=== PATIENT | male | born 1975 | race Hispanic/Latino ===

== ENCOUNTER 2020-10-02 19:16 | Inpatient (IN) | payer SELFPAY ==
--- NOTE | 2020-10-02 20:49 | Event Note ---
ED Screening Note Date of service: 10/02/20 Time: 20:46 ED Screening Note: pt is a 45 y/o male who presents for LLQ pain and swelling x 2 days with n/v last po yesterday, denies hx of hernia, crohns, or diverticulitis , states now unable to tolerate po intake sinse this am. there has been no fever or chills. denies etoh. This initial assessment/diagnostic orders/clinical plan/treatment(s) is/are subject to change based on patients health status, clinical progression and re- assessment by fellow clinical providers in the ED. Further treatment and workup at subsequent clinical providers discretion. Patient/guardian urged not to elope from the ED as their condition may be serious if not clinically assessed and managed. Initial orders include: cmp,cbc, ua, lipase,
[2020-10-02 21:04] LABS: Basophils # (Auto) 0.1 K/mm3 (0.0-0.1); Basophils % (Auto) 0.3 % (0.0-1.8); Eosinophils # (Auto) 0.2 K/mm3 (0.0-0.4); Hematocrit 53.5 % (35.5-45.6); Hemoglobin 18.2 gm/dl (11.8-15.2); Lymphocytes # (Auto) 2.8 K/mm3 (1.2-5.4); Lymphocytes % (Auto) 16.3 % (13.4-35.0); Mean Corpuscular HGB Conc 34 % (32-34); Mean Corpuscular Volume 92 fl (84-94); Monocytes # (Auto) 0.8 K/mm3 (0.0-0.8); Monocytes % (Auto) 4.8 % (0.0-7.3); Platelet Count 288 K/mm3 (140-440); Red Blood Count 5.84 M/mm3 (3.65-5.03); Red Cell Distribution Width 13.3 % (13.2-15.2)
[2020-10-02 21:25] LABS: Alanine Aminotransferase 22 units/L (7-56); Albumin 4.2 g/dL (3.9-5); BUN/Creatinine Ratio 16; Blood Urea Nitrogen 13 mg/dL (9-20); Hemolysis Index 9
[2020-10-02] MEDS ORDERED: ONDANSETRON 4 MG/2 ML INJ IV ONE (21:47)
[2020-10-02] MEDS ORDERED: SODIUM CHLORIDE 0.9% 1000 ML 1,000 ML IV ONE (21:47)
[2020-10-02] MEDS ORDERED: HYDROmorphone 2 MG/1 ML INJ IV ONE (21:47)
[2020-10-02] MEDS ORDERED: SODIUM CHLORIDE 0.9% 1000 ML IV SOLN IV ONE (21:51)
--- NOTE | 2020-10-02 21:51 | Emergency Department Report ---
ED Abdominal Pain HPI - General Chief Complaint: Abdominal Pain Stated Complaint: LEFT SIDE PAIN PUI?: No Time Seen by Provider: 10/02/20 21:47 Source: patient Mode of arrival: Ambulatory Limitations: No Limitations - History of Present Illness Initial Comments: Patient is a 45-year-old male absence emergency room with complaints of abdominal pain. Patient states he has had abdominal pain x3 days. Patient states he has had intermittent abdominal pain for the last year but this has become worse and more intense. Patient does have nausea and vomiting. Patient dates his had nausea vomiting x1 day. Patient states he is not able to hold anything down. Patient states his pain is a 10 out of 10. Patient states the pain is in the left lower quadrant. Patient states the pain is nonradiating. Patient denies fever and chills. Patient denies blood in his vomitus. Patient denies diarrhea. Patient denies recent travel. Patient denies recent international travel. Patient denies exposure to the novel coronavirus. Patient denies sick contacts. Patient denies fever and chills. Patient denies cough. Patient denies diarrhea. Patient denies coming in contact with anybody with symptoms of the novel coronavirus. MD Complaint: abdominal pain -: Sudden Location: LLQ Radiation: none Migration to: no migration Severity: severe Severity scale (0 -10): 10 Quality: stabbing Consistency: constant Improves With: rest Worsens With: movement Associated Symptoms: nausea, vomiting, anorexia. denies: diarrhea, fever, c hills, constipation, dysuria, hematemesis, hematochezia, melena, hematuria, syncope Treatments Prior to Arrival: NSAIDs - Related Data Allergies Allergy/AdvReac Type Severity Reaction Status Date / Time No Known Allergies Allergy Unverified 10/02/20 20:43 ED Review of Systems ROS: Stated complaint: LEFT SIDE PAIN Other details as noted in HPI Constitutional: denies: chills, fever Eyes: denies: eye pain, eye discharge, vision change ENT: denies: ear pain, throat pain Respiratory: denies: cough, shortness of breath, wheezing Cardiovascular: denies: chest pain, palpitations Endocrine: no symptoms reported Gastrointestinal: abdominal pain, nausea, vomiting. denies: diarrhea, constipation, hematemesis, melena, hematochezia Genitourinary: denies: urgency, dysuria Musculoskeletal: denies: back pain, joint swelling, arthralgia Skin: denies: rash, lesions Neurological: denies: headache, weakness, paresthesias Psychiatric: denies: anxiety, depression Hematological/Lymphatic: denies: easy bleeding, easy bruising ED Past Medical Hx - Past Medical History Previous Medical History?: Yes Additional medical history: Fluid on brain - Surgical History Past Surgical History?: Yes Additional Surgical History: Left leg hard lomax. - Family History Family history: no significant - Social History Smoking Status: Current Every Day Smoker Substance Use Type: None ED Physical Exam - General Limitations: No Limitations General appearance: alert, in no apparent distress - Head Head exam: Present: atraumatic, normocephalic - Eye Eye exam: Present: normal appearance - ENT ENT exam: Present: mucous membranes moist - Neck Neck exam: Present: normal inspection - Respiratory Respiratory exam: Present: normal lung sounds bilaterally. Absent: respiratory distress - Cardiovascular Cardiovascular Exam: Present: regular rate, normal rhythm. Absent: systolic murmur, diastolic murmur, rubs, gallop - GI/Abdominal GI/Abdominal exam: Present: soft, tenderness (Left lower quadrant tenderness to palpation.), normal bowel sounds - Rectal Rectal exam: Present: deferred - Extremities Exam Extremities exam: Present: normal inspection - Back Exam Back exam: Present: normal inspection - Neurological Exam Neurological exam: Present: alert, oriented X3 - Psychiatric Psychiatric exam: Present: normal affect, normal mood - Skin Skin exam: Present: warm, dry, intact, normal color. Absent: rash ED Course Vital Signs 10/02/20 20:37 Temperature 98.0 F Pulse Rate 128 H Respiratory 16 Rate Blood Pressure 131/73 O2 Sat by Pulse 96 Oximetry - Reevaluation(s) Reevaluation #1: Patient still complaining of severe pain. Patient be given another milligram of Dilaudid. 10/02/20 23:35 Reevaluation #2: I discussed all results with patient. I discussed plan of care with patient. Patient agrees with plan of care and admission. Patient to be admitted to the hospitalist service. 10/03/20 00:01 - Consultations Consultation #1: Hospitalist consulted for admission. Hospitalist to admit patient. 10/03/20 00:01 ED Medical Decision Making - Lab Data Result diagrams: 10/02/20 20:50 10/02/20 20:50 - Radiology Data Radiology results: report reviewed CT abdomen pelvis w con INDICATION: Patient complains of L.L.Q. abdominal pain.. COMPARISON: None TECHNIQUE: Abdominal and pelvic CT exam performed. All CT scans at this location are performed using CT dose reduction for ALARA by means of automated exposure control. FINDINGS: CT ABDOMEN and PELVIS: Lung Bases: No significant abnormality. Liver: No significant abnormality. Biliary: No significant abnormality. Spleen: No significant abnormality. Pancreas: No significant abnormality. Adrenals: No significant abnormality. Kidneys: No significant abnormality. Lymphatics: No lymphadenopathy. Vasculature: No significant abnormality. Bowel: No significant abnormality. Normal appendix. Pelvis: No significant abnormality. Osseous Structures: No aggressive osseous lesion. Additional Findings: Small fat-containing inguinal hernias. IMPRESSION: 1. No significant abnormality of the abdomen or pelvis. - Medical Decision Making Patient is a 45-year-old male that presents emergency room with complaints of left lower quadrant pain. Patient pain is severe. Patient's exam reveals a severely tender left lower quadrant. Patient had a CT scan to rule out acute pathologies of the abdomen. Patient CT scan was negative for acute findings. Patient was given 2 mg of Dilaudid after initial evaluation the patient still continued to have severe abdominal pain. Patient had labs done which revealed a lactic acidosis and a elevated WBC. Patient also was found to be tachycardic on initial evaluation. Patient given fluids and antibiotics. Patient's lactic acid improved with the treatment. Patient admitted to the hospitalist service for further evaluation and treatment. - Differential Diagnosis Diverticulitis, abdominal pain, sepsis, Sirs, UTI Critical Care Time: Yes Critical care time in (mins) excluding proc time.: 35 Critical care attestation.: If time is entered above; I have spent that time in minutes in the direct care of this critically ill patient, excluding procedure time. Critical Care Time: 35 MINUTES ED Disposition Clinical Impression: LLQ abdominal pain, Diverticulitis, Lactic acid acidosis, SIRS (systemic inflammatory response syndrome) Elevated WBC count Qualifiers: Leukocytosis type: unspecified Qualified Code(s): D72.829 - Elevated white blood cell count, unspecified Disposition: OP ADMIT IP TO THIS HOSP Is pt being admited?: Yes Does the pt Need Aspirin: No Condition: Critical Time of Disposition: 23:56
[2020-10-02] MEDS ORDERED: PIPERACIL/TAZOBACTA 4.5/NS 100 4.5 GM/100 ML VIAL IV ONE (21:52)
--- NOTE | 2020-10-02 22:54 | Cat Scan Report ---
CT abdomen pelvis w con INDICATION: Patient complains of L.L.Q. abdominal pain.. COMPARISON: None TECHNIQUE: Abdominal and pelvic CT exam performed. All CT scans at this location are performed using CT dose reduction for ALARA by means of automated exposure control. FINDINGS: CT ABDOMEN and PELVIS: Lung Bases: No significant abnormality. Liver: No significant abnormality. Biliary: No significant abnormality. Spleen: No significant abnormality. Pancreas: No significant abnormality. Adrenals: No significant abnormality. Kidneys: No significant abnormality. Lymphatics: No lymphadenopathy. Vasculature: No significant abnormality. Bowel: No significant abnormality. Normal appendix. Pelvis: No significant abnormality. Osseous Structures: No aggressive osseous lesion. Additional Findings: Small fat-containing inguinal hernias. IMPRESSION: 1. No significant abnormality of the abdomen or pelvis. Signer Name: Fabrizio Ro MD Signed: 10/02/2020 10:49 PM Workstation Name: [id number]
[2020-10-03] MEDS ORDERED: HYDROmorphone 1 MG/1 ML INJ IV ONE
[2020-10-03] MEDS ORDERED: ACETAMINOPHEN 325 MG TAB PO PRN (00:35)
[2020-10-03] MEDS ORDERED: MAGNESIUM HYDROXIDE (MOM) ORAL LIQD UDC PO PRN (00:35)
[2020-10-03] MEDS ORDERED: ONDANSETRON 4 MG/2 ML INJ IV PRN (00:35)
--- NOTE | 2020-10-03 00:52 | History and Physical Report ---
History of Present Illness Date of examination: 10/03/20 Date of admission: 10/03/20 00:02 Chief complaint: Nausea and Vomiting Abdominal Pain History of present illness: 45-year-old white male with no significant past medical history presenting to the emergency room today complaining of abdominal pain which has been ongoing for about 3 days. Abdominal pain is said to have been intermittent over the past 1 year but got worse over the past few days. He has been having nausea and vomiting over the last 24 hours. He denies any diarrhea. He denies any fever or chills, no chest pain or shortness of breath, no headache or dizziness, no hematuria or dysuria. Patient has had abdominal pain and indicates his pain is about 10/10 in severity. Pain is worse in the left lower abdomen. No known relieving or exacerbating factor. Patient denies any constipation . Patient denies any sick contacts and no recent travel, denies any contact with anyone with COVID-19. Work-up in the emergency room today reveals a leukocytosis of 17, he also had lactic acidosis upon arrival. CT of the abdomen and pelvis reveals:Small fat-containing inguinal hernias otherwise no acute findings. Patient admitted with abdominal pain, leukocytosis and lactic acidosis. He has also been placed on empiric IV antibiotics.. Past History Past Medical History: No medical history Past Surgical History: Other (History of hardware in the left lower extremity) Social history: smoking (Current daily smoker) Family history: no significant family history Medications and Allergies Allergies Allergy/AdvReac Type Severity Reaction Status Date / Time No Known Allergies Allergy Unverified 10/02/20 20:43 Home Medications Medication Instructions Recorded Confirmed Last Taken Type No Known Home Medications [No 10/03/20 10/03/20 Unknown History Reported Home Medications] Active Meds: Active Medications Acetaminophen (Acetaminophen 325 Mg Tab) 650 mg PO Q4H PRN PRN Reason: Pain MILD(1-3)/Fever >100.5/OLGUIN Hydromorphone HCl (Hydromorphone 1 Mg/1 Ml Inj) 1 mg IV Q3H PRN PRN Reason: Pain, Moderate (4-6) Sodium Chloride (Nacl 0.9% 1000 Ml) 1,000 mls @ 125 mls/hr IV DIRECT RUDI Magnesium Hydroxide (Magnesium Hydroxide (Mom) Oral Liqd Udc) 30 ml PO Q4H PRN PRN Reason: Constipation Ondansetron HCl (Ondansetron 4 Mg/2 Ml Inj) 4 mg IV Q8H PRN PRN Reason: Nausea And Vomiting Sodium Chloride (Sodium Chloride 0.9% 10 Ml Flush Syringe) 10 ml IV BID RUDI Sodium Chloride (Sodium Chloride 0.9% 10 Ml Flush Syringe) 10 ml IV PRN PRN PRN Reason: LINE FLUSH Review of Systems Constitutional: no fever, no chills Ears, nose, mouth and throat: no nasal congestion, no sore throat Cardiovascular: no chest pain, no palpitations Respiratory: no cough, no shortness of breath Gastrointestinal: abdominal pain, nausea, vomiting, no diarrhea, no constipation, no coffee ground emesis Genitourinary Male: no dysuria, no hematuria, no flank pain, no nocturia Musculoskeletal: no neck pain, no low back pain Integumentary: no rash, no pruritis Neurological: no headaches, no confusion Psychiatric: no anxiety, no depression Exam - Constitutional Vitals: Temp Pulse Resp BP Pulse Ox 98.0 F 128 H 16 131/73 96 10/02/20 20:37 10/02/20 20:37 10/02/20 20:37 10/02/20 20:37 10/02/20 20:37 General appearance: Present: no acute distress, mild distress, well-nourished - EENT Eyes: Present: PERRL, EOM intact. Absent: scleral icterus ENT: hearing intact, clear oral mucosa, dentition normal - Neck Neck: Present: supple, normal ROM - Respiratory Respiratory effort: normal Respiratory: bilateral: CTA - Cardiovascular Rhythm: regular Heart Sounds: Present: S1 & S2. Absent: gallop, systolic murmur, diastolic murmur, rub - Extremities Extremities: no ischemia, pulses intact, pulses symmetrical, No edema, Full ROM Peripheral Pulses: within normal limits - Abdominal General gastrointestinal: Present: soft, tender (Left lower quadrant, no rebound tenderness), non-distended, normal bowel sounds, hernia (Left inguinal hernia) - Integumentary Integumentary: Present: clear, warm, dry. Absent: rash - Musculoskeletal Musculoskeletal: strength equal bilaterally - Psychiatric Psychiatric: appropriate mood/affect, intact judgment & insight, memory intact - Neurologic Neurologic: CNII-XII intact, no focal deficits, moves all extremities Results - Labs CBC & Chem 7: 10/02/20 20:50 10/02/20 20:50 Labs: Abnormal lab results 10/02/20 10/02/20 10/02/20 Range/Units 20:50 20:50 20:50 WBC 17.1 H (4.5-11.0) K/mm3 RBC 5.84 H (3.65-5.03) M/mm3 Hgb 18.2 H (11.8-15.2) gm/dl Hct 53.5 H (35.5-45.6) % Seg Neutrophils % 77.6 H (40.0-70.0) % Seg Neutrophils # 13.3 H (1.8-7.7) K/mm3 Sodium 132 L (137-145) mmol/L Chloride 97.7 L (98-107) mmol/L Glucose 113 H (75-100) mg/dL Lactic Acid 2.10 H* (0.7-2.0) mmol/L Assessment and Plan - Patient Problems (1) LLQ abdominal pain Current Visit: Yes Status: Acute Plan to address problem: Etiology is unclear. Presentation suspicious for diverticulitis. Patient placed on IV analgesic medication, IV fluid and empiric IV antibiotics. Will consider surgical consultation if no improvement. (2) Elevated WBC count Current Visit: Yes Status: Acute Qualifiers: Leukocytosis type: unspecified Qualified Code(s): D72.829 - Elevated white blood cell count, unspecified Plan to address problem: Possibly secondary to an underlying infection. Will monitor CBC. He has also been placed on empiric IV antibiotics. (3) Lactic acid acidosis Current Visit: Yes Status: Acute Plan to address problem: We will continue on antibiotics and IV fluid. Will monitor chemistry. (4) DVT prophylaxis Current Visit: Yes Status: Acute Plan to address problem: Patient placed on subcutaneous heparin. (5) Full code status Current Visit: Yes Status: Acute Plan to address problem: Patient is a full code.
[2020-10-03 00:54] LABS: Bilirubin,Urine NEG (Negative); Blood,Urine NEG (Negative); Color,Urine Yellow (Yellow); Mucus,Urine FEW /HPF; Protein,Urine <15 mg/dL mg/dL (Negative); Urobilinogen,Urine < 2.0 mg/dL (<2.0); WBC,Urine < 1.0 /HPF (0.0-6.0)
[2020-10-03] MEDS: HEPARIN 5,000 UNIT/1 ML VIAL SUB-Q SCH ×3 (06:47→21:26)
[2020-10-03] MEDS: PIPERACIL/TAZOBACTA 4.5/NS 100 4.5 GM/100 ML VIAL IV SCH ×3 (06:52→21:27)
[2020-10-03] MEDS: SODIUM CHLORIDE 0.9% 1000 ML 1,000 ML IV SCH ×2 (08:06→16:34)
[2020-10-03] MEDS: HYDROmorphone 1 MG/1 ML INJ IV PRN ×2 (09:18→21:50)
--- NOTE | 2020-10-03 09:40 | Gastroenterology Consultation ---
History of Present Illness - Reason for Consult Consult date: 10/03/20 Abd pain Requesting physician: KVNG HOFFMAN - History of Present Illness Is a pleasant 45-year-old gentleman with no known medical history presents with abdominal pain Patient reports for the last year having abdominal pain in the left groin where he has a hernia He reports the pain is waxing and waning ranging from mild to severe it was present most of the time Worse with lifting heavy objects better with resting Pain radiates up to the mid abdomen. Pain has been worsening over the past week pain is now severe sharp constant associated with intermittent severe nausea vomiting and diarrhea Patient denies any Po medications sick contacts Reports occasional NSAID use but not daily Reports smoking Reports moderate alcohol use Obtained/updated/reviewed patient's current medications Past History Past Medical History: No medical history Past Surgical History: Other (History of hardware in the left lower extremity) Social history: smoking (Current daily smoker) Family history: no significant family history Medications and Allergies Allergies Allergy/AdvReac Type Severity Reaction Status Date / Time No Known Allergies Allergy Unverified 10/02/20 20:43 Home Medications Medication Instructions Recorded Confirmed Last Taken Type No Known Home Medications [No 10/03/20 10/03/20 Unknown History Reported Home Medications] Active Meds: Active Medications Acetaminophen (Acetaminophen 325 Mg Tab) 650 mg PO Q4H PRN PRN Reason: Pain MILD(1-3)/Fever >100.5/OLGUIN Heparin Sodium (Porcine) (Heparin 5,000 Unit/1 Ml Vial) 5,000 unit SUB-Q Q8HR RUDI Last Admin: 10/03/20 06:47 Dose: 5,000 unit Documented by: Hydromorphone HCl (Hydromorphone 1 Mg/1 Ml Inj) 1 mg IV Q3H PRN PRN Reason: Pain, Moderate (4-6) Last Admin: 10/03/20 09:18 Dose: 1 mg Documented by: Sodium Chloride (Nacl 0.9% 1000 Ml) 1,000 mls @ 125 mls/hr IV DIRECT RUDI Last Admin: 10/03/20 08:06 Dose: 125 mls/hr Documented by: Piperacillin Sod/Tazobactam Sod (Zosyn/Ns 4.5gm/100ml) 4.5 gm in 100 mls @ 200 mls/hr IV Q8H RUDI; Protocol Last Admin: 10/03/20 06:52 Dose: 200 mls/hr Documented by: Magnesium Hydroxide (Magnesium Hydroxide (Mom) Oral Liqd Udc) 30 ml PO Q4H PRN PRN Reason: Constipation Ondansetron HCl (Ondansetron 4 Mg/2 Ml Inj) 4 mg IV Q8H PRN PRN Reason: Nausea And Vomiting Sodium Chloride (Sodium Chloride 0.9% 10 Ml Flush Syringe) 10 ml IV BID RUDI Last Admin: 10/03/20 09:15 Dose: 10 ml Documented by: Sodium Chloride (Sodium Chloride 0.9% 10 Ml Flush Syringe) 10 ml IV PRN PRN PRN Reason: LINE FLUSH Last Admin: 10/03/20 06:53 Dose: 10 ml Documented by: Review of Systems - Review of Systems All systems: negative (10 Systems reviewed and negative except as mentioned above in the history of present illness) Exam - Constitutional Vital Signs: Temp Pulse Resp BP Pulse Ox 97.7 F 89 20 112/73 96 10/03/20 07:47 10/03/20 07:47 10/03/20 05:31 10/03/20 07:47 10/03/20 07:47 General appearance: no acute distress - EENT Eyes: EOM intact ENT: clear oral mucosa - Neck Neck: supple - Respiratory Respiratory effort: normal - Cardiovascular Rhythm: regular - Gastrointestinal General gastrointestinal: Present: soft, tender, other (Diffuse tenderness palpation, worse in the left lower quadrant/left groin) - Integumentary Integumentary: Present: dry - Musculoskeletal Musculoskeletal: other (Minimal clubbing) - Neurologic Neurological: alert and oriented x3 - Psychiatric Psychiatric: appropriate mood/affect - Labs CBC & Chem 7: 10/02/20 20:50 10/02/20 20:50 Lab Results: Laboratory Results - last 24 hr 10/02/20 10/02/20 10/02/20 20:50 20:50 20:50 WBC 17.1 H RBC 5.84 H Hgb 18.2 H Hct 53.5 H MCV 92 MCH 31 MCHC 34 RDW 13.3 Plt Count 288 Lymph % (Auto) 16.3 King % (Auto) 4.8 Eos % (Auto) 1.0 Baso % (Auto) 0.3 Lymph # (Auto) 2.8 King # (Auto) 0.8 Eos # (Auto) 0.2 Baso # (Auto) 0.1 Seg Neutrophils % 77.6 H Seg Neutrophils # 13.3 H Sodium 132 L Potassium 3.6 Chloride 97.7 L Carbon Dioxide 22 Anion Gap 16 BUN 13 Creatinine 0.8 Estimated GFR > 60 BUN/Creatinine Ratio 16 Glucose 113 H Lactic Acid 2.10 H* Calcium 9.0 Total Bilirubin 0.50 AST 18 ALT 22 Alkaline Phosphatase 73 Total Protein 7.4 Albumin 4.2 Albumin/Globulin Ratio 1.3 Lipase Urine Color Urine Turbidity Urine pH Ur Specific Union Urine Protein Urine Glucose (UA) Urine Ketones Urine Blood Urine Nitrite Urine Bilirubin Urine Urobilinogen Ur Leukocyte Esterase Urine WBC (Auto) Urine RBC (Auto) Urine Mucus 10/02/20 10/02/20 10/03/20 20:50 22:45 00:25 WBC RBC Hgb Hct MCV MCH MCHC RDW Plt Count Lymph % (Auto) King % (Auto) Eos % (Auto) Baso % (Auto) Lymph # (Auto) King # (Auto) Eos # (Auto) Baso # (Auto) Seg Neutrophils % Seg Neutrophils # Sodium Potassium Chloride Carbon Dioxide Anion Gap BUN Creatinine Estimated GFR BUN/Creatinine Ratio Glucose Lactic Acid 1.10 Calcium Total Bilirubin AST ALT Alkaline Phosphatase Total Protein Albumin Albumin/Globulin Ratio Lipase 58 Urine Color Yellow Urine Turbidity Clear Urine pH 5.0 Ur Specific Union 1.060 H Urine Protein <15 mg/dl Urine Glucose (UA) Neg Urine Ketones Neg Urine Blood Neg Urine Nitrite Neg Urine Bilirubin Neg Urine Urobilinogen < 2.0 Ur Leukocyte Esterase Neg Urine WBC (Auto) < 1.0 Urine RBC (Auto) 2.0 Urine Mucus Few Assessment and Plan Patient appears to be having a symptomatic inguinal hernia for the last year However, no obstruction seen on CT scan and patient not clinically obstructed on physical exam this morning Regarding his worsening symptoms over the last week,-differential diagnosis would be acute infectious gastroenteritis Additionally patient is a smoker and does use NSAIDs on occasion so has a risk factors for peptic ulcer disease. Therefore I recommend supportive care with hydration, PPI, as needed antiemetics (orders placed) Stool studies rule out infection Patient does not require urgent endoscopy at this juncture, rather recommend medical management and if patient does not improve over the weekend then will recommend further endoscopic evaluation Surgery has already been consulted for the patient's symptomatic hernia, defer to them regarding timing of surgery - Patient Problems (1) Nausea and vomiting Current Visit: Yes Status: Acute (2) Diarrhea Current Visit: Yes Status: Acute (3) LLQ abdominal pain Current Visit: Yes Status: Acute
--- NOTE | 2020-10-03 09:44 | Progress Note ---
Assessment and Plan Assessment and plan: Left lower quadrant abdominal pain. Etiology likely secondary to inguinal hernia. GI and surgery consultations pending. CT scan revealed Small fat- containing inguinal hernias otherwise no acute findings. Continue empiric antibiotics for diverticulitis Leukocytosis. Patient showing no evidence of infectious etiology. Check chest x-ray. Urinalysis negative. History Interval history: No new issues Hospitalist Physical - Constitutional Vitals: Temp Pulse Resp BP Pulse Ox 97.7 F 89 20 112/73 96 10/03/20 07:47 10/03/20 07:47 10/03/20 05:31 10/03/20 07:47 10/03/20 07:47 General appearance: Present: no acute distress, mild distress, well-nourished - EENT Eyes: Present: PERRL, EOM intact ENT: hearing intact, clear oral mucosa, dentition normal - Neck Neck: Present: supple, normal ROM - Respiratory Respiratory effort: normal Respiratory: bilateral: CTA - Cardiovascular Rhythm: regular Heart Sounds: Present: S1 & S2. Absent: gallop, rub - Extremities Extremities: no ischemia, No edema, Full ROM - Abdominal General gastrointestinal: soft, non-tender, non-distended, normal bowel sounds - Integumentary Integumentary: Present: clear, warm, dry - Neurologic Neurologic: CNII-XII intact, moves all extremities Results - Labs CBC & Chem 7: 10/02/20 20:50 10/02/20 20:50 Labs: Laboratory Last Values WBC 17.1 K/mm3 (4.5-11.0) H 10/02/20 20:50 RBC 5.84 M/mm3 (3.65-5.03) H 10/02/20 20:50 Hgb 18.2 gm/dl (11.8-15.2) H 10/02/20 20:50 Hct 53.5 % (35.5-45.6) H 10/02/20 20:50 MCV 92 fl (84-94) 10/02/20 20:50 MCH 31 pg (28-32) 10/02/20 20:50 MCHC 34 % (32-34) 10/02/20 20:50 RDW 13.3 % (13.2-15.2) 10/02/20 20:50 Plt Count 288 K/mm3 (140-440) 10/02/20 20:50 Lymph % (Auto) 16.3 % (13.4-35.0) 10/02/20 20:50 Worth % (Auto) 4.8 % (0.0-7.3) 10/02/20 20:50 Eos % (Auto) 1.0 % (0.0-4.3) 10/02/20 20:50 Baso % (Auto) 0.3 % (0.0-1.8) 10/02/20 20:50 Lymph # (Auto) 2.8 K/mm3 (1.2-5.4) 10/02/20 20:50 Worth # (Auto) 0.8 K/mm3 (0.0-0.8) 10/02/20 20:50 Eos # (Auto) 0.2 K/mm3 (0.0-0.4) 10/02/20 20:50 Baso # (Auto) 0.1 K/mm3 (0.0-0.1) 10/02/20 20:50 Seg Neutrophils % 77.6 % (40.0-70.0) H 10/02/20 20:50 Seg Neutrophils # 13.3 K/mm3 (1.8-7.7) H 10/02/20 20:50 Sodium 132 mmol/L (137-145) L 10/02/20 20:50 Potassium 3.6 mmol/L (3.6-5.0) 10/02/20 20:50 Chloride 97.7 mmol/L (98-107) L 10/02/20 20:50 Carbon Dioxide 22 mmol/L (22-30) 10/02/20 20:50 Anion Gap 16 mmol/L 10/02/20 20:50 BUN 13 mg/dL (9-20) 10/02/20 20:50 Creatinine 0.8 mg/dL (0.8-1.3) 10/02/20 20:50 Estimated GFR > 60 ml/min 10/02/20 20:50 BUN/Creatinine Ratio 16 % 10/02/20 20:50 Glucose 113 mg/dL (75-100) H 10/02/20 20:50 Lactic Acid 1.10 mmol/L (0.7-2.0) 10/02/20 22:45 Calcium 9.0 mg/dL (8.4-10.2) 10/02/20 20:50 Total Bilirubin 0.50 mg/dL (0.1-1.2) 10/02/20 20:50 AST 18 units/L (5-40) 10/02/20 20:50 ALT 22 units/L (7-56) 10/02/20 20:50 Alkaline Phosphatase 73 units/L (35-129) 10/02/20 20:50 Total Protein 7.4 g/dL (6.3-8.2) 10/02/20 20:50 Albumin 4.2 g/dL (3.9-5) 10/02/20 20:50 Albumin/Globulin Ratio 1.3 % 10/02/20 20:50 Lipase 58 units/L (13-60) 10/02/20 20:50 Urine Color Yellow (Yellow) 10/03/20 00:25 Urine Turbidity Clear (Clear) 10/03/20 00:25 Urine pH 5.0 (5.0-7.0) 10/03/20 00:25 Ur Specific [place] 1.060 (1.003-1.030) H 10/03/20 00:25 Urine Protein <15 mg/dl mg/dL (Negative) 10/03/20 00:25 Urine Glucose (UA) Neg mg/dL (Negative) 10/03/20 00:25 Urine Ketones Neg mg/dL (Negative) 10/03/20 00:25 Urine Blood Neg (Negative) 10/03/20 00:25 Urine Nitrite Neg (Negative) 10/03/20 00:25 Urine Bilirubin Neg (Negative) 10/03/20 00:25 Urine Urobilinogen < 2.0 mg/dL (<2.0) 10/03/20 00:25 Ur Leukocyte Esterase Neg (Negative) 10/03/20 00:25 Urine WBC (Auto) < 1.0 /HPF (0.0-6.0) 10/03/20 00:25 Urine RBC (Auto) 2.0 /HPF (0.0-6.0) 10/03/20 00:25 Urine Mucus Few /HPF 10/03/20 00:25 Microbiology: Microbiology 10/02/20 22:45 Peripheral/Venous Blood Culture - Preliminary Culture in Progress 10/02/20 22:45 Peripheral/Venous Blood Culture - Preliminary Culture in Progress Hewitt/IV: Voiding Method Toilet IV Catheter Type [Left Peripheral IV Antecubital] Active Medications - Current Medications Current Medications: Generic Name Dose Route Start Last Admin Trade Name Freq PRN Reason Stop Dose Admin Acetaminophen 650 mg 10/03/20 00:35 Acetaminophen 325 Mg Tab PO Q4H PRN Pain MILD(1-3)/Fever >100.5/OLGUIN Heparin Sodium (Porcine) 5,000 unit 10/03/20 06:00 10/03/20 06:47 Heparin 5,000 Unit/1 Ml Vial SUB-Q 5,000 unit Q8HR RUDI Administration Hydromorphone HCl 1 mg 10/03/20 00:35 10/03/20 09:18 Hydromorphone 1 Mg/1 Ml Inj IV 1 mg Q3H PRN Administration Pain, Moderate (4-6) Sodium Chloride 1,000 mls @ 125 mls/hr 10/03/20 00:45 10/03/20 08:06 Nacl 0.9% 1000 Ml IV 125 mls/hr DIRECT RUDI Administration Piperacillin Sod/Tazobactam Sod 4.5 gm in 100 mls @ 200 mls/hr 10/03/20 06:00 10/03/20 06:52 Zosyn/Ns 4.5gm/100ml IV 200 mls/hr Q8H RUDI Administration Protocol Magnesium Hydroxide 30 ml 10/03/20 00:35 Magnesium Hydroxide (Mom) Oral Liqd Udc PO Q4H PRN Constipation Ondansetron HCl 4 mg 10/03/20 00:35 Ondansetron 4 Mg/2 Ml Inj IV Q8H PRN Nausea And Vomiting Pantoprazole Sodium 40 mg 10/03/20 10:00 Pantoprazole 40 Mg Tab PO BID RUDI Sodium Chloride 10 ml 10/03/20 10:00 10/03/20 09:15 Sodium Chloride 0.9% 10 Ml Flush Syringe IV 10 ml BID RUDI Administration Sodium Chloride 10 ml 10/03/20 00:35 10/03/20 06:53 Sodium Chloride 0.9% 10 Ml Flush Syringe IV 10 ml PRN PRN Administration LINE FLUSH
[2020-10-03] MEDS: PANTOPRAZOLE 40 MG TAB PO SCH ×2 (10:07→21:26)
--- NOTE | 2020-10-03 10:32 | XRay Report ---
CHEST 1 VIEW 9:58 AM INDICATION / CLINICAL INFORMATION: Leukocytosis. COMPARISON: None available. FINDINGS: SUPPORT DEVICES: None. HEART / MEDIASTINUM: The heart size and pulmonary vasculature are normal. LUNGS / PLEURA: No significant pulmonary or pleural abnormality. No pneumothorax. ADDITIONAL FINDINGS: No significant additional findings. IMPRESSION: No acute findings. There is no evidence of pneumonia. Signer Name: Cecil Torres MD Signed: 10/03/2020 10:28 AM Workstation Name: [id number]
--- NOTE | 2020-10-03 13:15 | Consultation ---
History of Present Illness Consult date: 10/03/20 Reason for consult: abdominal pain Chief complaint: abdominal pain, left inguinal hernia - History of present illness History of present illness: 45 yo M with c/o abdominal pain, n/v/d for the last 2 days. Patient states pain in in the epigastrum and also along the lower abdomen. Pain is sharp. No allevi ating factors. No exacerbating factors. No sick contacts. He has never had pain like this in the past. No f/c. He also notes a left inguinal hernia which he first noticed in Oct 2019. He states at that time he was incarcerated and at the end of his sentence, therefore hernia was not addressed. He states the hernia is painful at times and when he is bending, lifting or performing strenuous activity, the hernia is more noticeable. He states the area is always soft. He is hungry right now and denies nausea. No issues with urination. Past History Past Medical History: No medical history Past Surgical History: Other (History of hardware in the left lower extremity) Social history: smoking (Current daily smoker), alcohol abuse (social), other (methamphetamine several times a week, marijuana) Family history: no significant family history Medications and Allergies Allergies Allergy/AdvReac Type Severity Reaction Status Date / Time No Known Allergies Allergy Unverified 10/02/20 20:43 Home Medications Medication Instructions Recorded Confirmed Last Taken Type No Known Home Medications [No 10/03/20 10/03/20 Unknown History Reported Home Medications] Active Meds: Active Medications Acetaminophen (Acetaminophen 325 Mg Tab) 650 mg PO Q4H PRN PRN Reason: Pain MILD(1-3)/Fever >100.5/OLGUIN Heparin Sodium (Porcine) (Heparin 5,000 Unit/1 Ml Vial) 5,000 unit SUB-Q Q8HR RUDI Last Admin: 10/03/20 06:47 Dose: 5,000 unit Documented by: Hydromorphone HCl (Hydromorphone 1 Mg/1 Ml Inj) 1 mg IV Q3H PRN PRN Reason: Pain, Moderate (4-6) Last Admin: 10/03/20 09:18 Dose: 1 mg Documented by: Sodium Chloride (Nacl 0.9% 1000 Ml) 1,000 mls @ 125 mls/hr IV DIRECT RUDI Last Admin: 10/03/20 08:06 Dose: 125 mls/hr Documented by: Piperacillin Sod/Tazobactam Sod (Zosyn/Ns 4.5gm/100ml) 4.5 gm in 100 mls @ 200 mls/hr IV Q8H [facility]; Protocol Last Admin: 10/03/20 06:52 Dose: 200 mls/hr Documented by: Magnesium Hydroxide (Magnesium Hydroxide (Mom) Oral Liqd Udc) 30 ml PO Q4H PRN PRN Reason: Constipation Ondansetron HCl (Ondansetron 4 Mg/2 Ml Inj) 4 mg IV Q8H PRN PRN Reason: Nausea And Vomiting Pantoprazole Sodium (Pantoprazole 40 Mg Tab) 40 mg PO BID [facility] Last Admin: 10/03/20 10:07 Dose: 40 mg Documented by: Sodium Chloride (Sodium Chloride 0.9% 10 Ml Flush Syringe) 10 ml IV BID [facility] Last Admin: 10/03/20 09:15 Dose: 10 ml Documented by: Sodium Chloride (Sodium Chloride 0.9% 10 Ml Flush Syringe) 10 ml IV PRN PRN PRN Reason: LINE FLUSH Last Admin: 10/03/20 06:53 Dose: 10 ml Documented by: Review of Systems All systems: negative (10 pt ROS performed and negative except for that listed in HPI) Exam Vital Signs Temp Pulse Resp BP Pulse Ox 98.0 F 128 H 16 131/73 96 10/02/20 20:37 10/02/20 20:37 10/02/20 20:37 10/02/20 20:37 10/02/20 20:37 Narrative exam: Gen.: Awake, alert, oriented 3. No apparent distress ENT: Trachea midline. No lymphadenopathy. No scleral icterus or conjunctival pallor CV: S1, S2 present Respiratory: No audible wheezes Abdomen: Soft, nondistended, mild epigastric tenderness to palpation. Reducible inguinal hernias bilaterally. The left was mildly tender during reduction but was soft without skin changes. No rebound, rigidity, guarding Extremities: No clubbing, cyanosis, edema Results - Labs 10/02/20 20:50 10/02/20 20:50 Abnormal lab results 10/02/20 10/02/20 10/02/20 Range/Units 20:50 20:50 20:50 WBC 17.1 H (4.5-11.0) K/mm3 RBC 5.84 H (3.65-5.03) M/mm3 Hgb 18.2 H (11.8-15.2) gm/dl Hct 53.5 H (35.5-45.6) % Seg Neutrophils % 77.6 H (40.0-70.0) % Seg Neutrophils # 13.3 H (1.8-7.7) K/mm3 Sodium 132 L (137-145) mmol/L Chloride 97.7 L (98-107) mmol/L Glucose 113 H (75-100) mg/dL Lactic Acid 2.10 H* (0.7-2.0) mmol/L Ur Specific [place] (1.003-1.030) 10/03/20 Range/Units 00:25 WBC (4.5-11.0) K/mm3 RBC (3.65-5.03) M/mm3 Hgb (11.8-15.2) gm/dl Hct (35.5-45.6) % Seg Neutrophils % (40.0-70.0) % Seg Neutrophils # (1.8-7.7) K/mm3 Sodium (137-145) mmol/L Chloride (98-107) mmol/L Glucose (75-100) mg/dL Lactic Acid (0.7-2.0) mmol/L Ur Specific [place] 1.060 H (1.003-1.030) Diabetes panel 10/02/20 Range/Units 20:50 Sodium 132 L (137-145) mmol/L Potassium 3.6 (3.6-5.0) mmol/L Chloride 97.7 L (98-107) mmol/L Carbon Dioxide 22 (22-30) mmol/L BUN 13 (9-20) mg/dL Creatinine 0.8 (0.8-1.3) mg/dL Glucose 113 H (75-100) mg/dL Calcium 9.0 (8.4-10.2) mg/dL AST 18 (5-40) units/L ALT 22 (7-56) units/L Alkaline Phosphatase 73 (35-129) units/L Total Protein 7.4 (6.3-8.2) g/dL Albumin 4.2 (3.9-5) g/dL Calcium panel 10/02/20 Range/Units 20:50 Calcium 9.0 (8.4-10.2) mg/dL Albumin 4.2 (3.9-5) g/dL Pituitary panel 10/02/20 Range/Units 20:50 Sodium 132 L (137-145) mmol/L Potassium 3.6 (3.6-5.0) mmol/L Chloride 97.7 L (98-107) mmol/L Carbon Dioxide 22 (22-30) mmol/L BUN 13 (9-20) mg/dL Creatinine 0.8 (0.8-1.3) mg/dL Glucose 113 H (75-100) mg/dL Calcium 9.0 (8.4-10.2) mg/dL Adrenal panel 10/02/20 Range/Units 20:50 Sodium 132 L (137-145) mmol/L Potassium 3.6 (3.6-5.0) mmol/L Chloride 97.7 L (98-107) mmol/L Carbon Dioxide 22 (22-30) mmol/L BUN 13 (9-20) mg/dL Creatinine 0.8 (0.8-1.3) mg/dL Glucose 113 H (75-100) mg/dL Calcium 9.0 (8.4-10.2) mg/dL Total Bilirubin 0.50 (0.1-1.2) mg/dL AST 18 (5-40) units/L ALT 22 (7-56) units/L Alkaline Phosphatase 73 (35-129) units/L Total Protein 7.4 (6.3-8.2) g/dL Albumin 4.2 (3.9-5) g/dL - Imaging CT scan - abdomen: report reviewed, image reviewed CT scan - pelvis: report reviewed, image reviewed Assessment and Plan 45-year-old male with 1. Abdominal pain 2. Nausea, vomiting, diarrhea - ?gastroenteritis 3. Bilateral reducible inguinal hernias, left symptomatic CT scan - b/l fat containing inguinal hernias. No acute intraabdominal pathology. Plan: 1. Continue IVF 2. start diet 3. on empiric abx per 1' team 4. r/o GI infection - stool studies pending 5. COVID test ordered 6. prn pain control 7. nicotine patch, smoking cessation discussed in detail. Smoking impact on hernia repair, wound healing explained. 8. GI consult noted 9. Trend CBC - monitor WBC 10. Recommend b/l inguinal hernia repair. Patient is symptomatic on left. Recommend robotic assisted approach as both sides can be repaired at the same time - this is semielective as hernias are reducible, fat containing, without obstruction. Once infectious process is r/o per 1' service and GI, can proceed with surgery. Would not want to perform hernia repair if active infectious proce ss is present. If patient's pain is well controlled, may be discharged and hernia repair can be performed as outpatient. Patient will need jeffrey care application, financial counselling involved as he is unfunded. Otherwise, next available date available in OR is Friday 10/06 @1330 for which he is added on. Discussed with Dr. Zhang Thank you for this consultation. Please call with any questions or concerns. Evaluation and treatment of this patient was during the time of the national and state emergency arising from COVID19 coronavirus pandemic. Treatment and procedures performed meet the current and available best practice and guidelines for patient during the COVID pandemic.
[2020-10-03] MEDS ORDERED: traMADol 50 MG TAB PO PRN (13:30)
[2020-10-03] MEDS: NICOTINE 21 MG/24 HR PATCH TD SCH (13:48)
[2020-10-04] MEDS: SODIUM CHLORIDE 0.9% 1000 ML 1,000 ML IV SCH ×2 (02:07→09:55)
[2020-10-04] MEDS: PIPERACIL/TAZOBACTA 4.5/NS 100 4.5 GM/100 ML VIAL IV SCH ×2 (05:50→13:15)
[2020-10-04] MEDS: HEPARIN 5,000 UNIT/1 ML VIAL SUB-Q SCH ×2 (05:50→13:15)
[2020-10-04 06:25] LABS: Basophils % (Auto) 0.2 % (0.0-1.8); Eosinophils # (Auto) 0.3 K/mm3 (0.0-0.4); Eosinophils % (Auto) 2.8 % (0.0-4.3); Hematocrit 44.8 % (35.5-45.6); Hemoglobin 15.5 gm/dl (11.8-15.2); Lymphocytes # (Auto) 2.5 K/mm3 (1.2-5.4); Lymphocytes % (Auto) 27.1 % (13.4-35.0); Mean Corpuscular HGB Conc 35 % (32-34); Mean Corpuscular Volume 91 fl (84-94); Monocytes # (Auto) 0.7 K/mm3 (0.0-0.8); Monocytes % (Auto) 7.6 % (0.0-7.3); Platelet Count 219 K/mm3 (140-440); Red Blood Count 4.92 M/mm3 (3.65-5.03); Red Cell Distribution Width 12.9 % (13.2-15.2)
[2020-10-04 06:35] LABS: INR 1.02 (0.87-1.13)
[2020-10-04 06:48] LABS: Blood Urea Nitrogen 6 mg/dL (9-20); Calcium 7.5 mg/dL (8.4-10.2); Hemolysis Index 4
[2020-10-04 06:51] LABS: BUN/Creatinine Ratio 9
[2020-10-04] MEDS: NICOTINE 21 MG/24 HR PATCH TD SCH (09:51)
[2020-10-04] MEDS: PANTOPRAZOLE 40 MG TAB PO SCH (09:51)
--- NOTE | 2020-10-04 09:55 | Progress Note ---
Assessment and Plan Assessment and plan: Left lower quadrant abdominal pain. Etiology likely secondary to inguinal hernia. GI and surgery consultations pending. CT scan revealed Small fat- containing inguinal hernias otherwise no acute findings. Continue empiric antibiotics for presumed gastroenteritis Gastroenteritis. Patient treated empirically with Zosyn. GI does not recommend EGD at this time. Leukocytosis. Patient showing no evidence of infectious etiology. Check chest x-ray. Urinalysis negative. 10/04/2020. Surgery recommends bilateral inguinal hernia repair. Consider performing surgery as an outpatient. Infectious process has resolved with normalization of white count and patient remains afebrile. Blood cultures neg ative x24 hours. Chest x-ray and urinalysis negative. History Interval history: No new issues Hospitalist Physical - Constitutional Vitals: Temp Pulse Resp BP Pulse Ox 98.6 F 96 H 18 129/83 95 10/04/20 08:09 10/04/20 08:09 10/04/20 08:09 10/04/20 08:09 10/04/20 08:09 General appearance: Present: no acute distress, mild distress, well-nourished - EENT Eyes: Present: PERRL, EOM intact ENT: hearing intact, clear oral mucosa, dentition normal - Neck Neck: Present: supple, normal ROM - Respiratory Respiratory effort: normal Respiratory: bilateral: CTA - Cardiovascular Rhythm: regular Heart Sounds: Present: S1 & S2. Absent: gallop, rub - Extremities Extremities: no ischemia, No edema, Full ROM - Abdominal General gastrointestinal: soft, non-tender, non-distended, normal bowel sounds - Integumentary Integumentary: Present: clear, warm, dry - Neurologic Neurologic: CNII-XII intact, moves all extremities Results - Labs CBC & Chem 7: 10/04/20 05:30 10/04/20 05:30 Labs: Laboratory Last Values WBC 9.2 K/mm3 (4.5-11.0) 10/04/20 05:30 RBC 4.92 M/mm3 (3.65-5.03) 10/04/20 05:30 Hgb 15.5 gm/dl (11.8-15.2) H 10/04/20 05:30 Hct 44.8 % (35.5-45.6) D 10/04/20 05:30 MCV 91 fl (84-94) 10/04/20 05:30 MCH 32 pg (28-32) 10/04/20 05:30 MCHC 35 % (32-34) H 10/04/20 05:30 RDW 12.9 % (13.2-15.2) L 10/04/20 05:30 Plt Count 219 K/mm3 (140-440) 10/04/20 05:30 Lymph % (Auto) 27.1 % (13.4-35.0) 10/04/20 05:30 [place] % (Auto) 7.6 % (0.0-7.3) H 10/04/20 05:30 Eos % (Auto) 2.8 % (0.0-4.3) 10/04/20 05:30 Baso % (Auto) 0.2 % (0.0-1.8) 10/04/20 05:30 Lymph # (Auto) 2.5 K/mm3 (1.2-5.4) 10/04/20 05:30 [place] # (Auto) 0.7 K/mm3 (0.0-0.8) 10/04/20 05:30 Eos # (Auto) 0.3 K/mm3 (0.0-0.4) 10/04/20 05:30 Baso # (Auto) 0.0 K/mm3 (0.0-0.1) 10/04/20 05:30 Seg Neutrophils % 62.3 % (40.0-70.0) 10/04/20 05:30 Seg Neutrophils # 5.7 K/mm3 (1.8-7.7) 10/04/20 05:30 PT 13.3 Sec. (12.2-14.9) 10/04/20 05:30 INR 1.02 (0.87-1.13) 10/04/20 05:30 Sodium 137 mmol/L (137-145) 10/04/20 05:30 Potassium 3.8 mmol/L (3.6-5.0) 10/04/20 05:30 Chloride 108.4 mmol/L (98-107) H 10/04/20 05:30 Carbon Dioxide 20 mmol/L (22-30) L 10/04/20 05:30 Anion Gap 12 mmol/L 10/04/20 05:30 BUN 6 mg/dL (9-20) L 10/04/20 05:30 Creatinine 0.7 mg/dL (0.8-1.3) L 10/04/20 05:30 Estimated GFR > 60 ml/min 10/04/20 05:30 BUN/Creatinine Ratio 9 % 10/04/20 05:30 Glucose 88 mg/dL (75-100) 10/04/20 05:30 Lactic Acid 1.10 mmol/L (0.7-2.0) 10/02/20 22:45 Calcium 7.5 mg/dL (8.4-10.2) L D 10/04/20 05:30 Total Bilirubin 0.50 mg/dL (0.1-1.2) 10/02/20 20:50 AST 18 units/L (5-40) 10/02/20 20:50 ALT 22 units/L (7-56) 10/02/20 20:50 Alkaline Phosphatase 73 units/L (35-129) 10/02/20 20:50 Total Protein 7.4 g/dL (6.3-8.2) 10/02/20 20:50 Albumin 4.2 g/dL (3.9-5) 10/02/20 20:50 Albumin/Globulin Ratio 1.3 % 10/02/20 20:50 Lipase 58 units/L (13-60) 10/02/20 20:50 Urine Color Yellow (Yellow) 10/03/20 00:25 Urine Turbidity Clear (Clear) 10/03/20 00:25 Urine pH 5.0 (5.0-7.0) 10/03/20 00:25 Ur Specific [place] 1.060 (1.003-1.030) H 10/03/20 00:25 Urine Protein <15 mg/dl mg/dL (Negative) 10/03/20 00:25 Urine Glucose (UA) Neg mg/dL (Negative) 10/03/20 00:25 Urine Ketones Neg mg/dL (Negative) 10/03/20 00:25 Urine Blood Neg (Negative) 10/03/20 00:25 Urine Nitrite Neg (Negative) 10/03/20 00:25 Urine Bilirubin Neg (Negative) 10/03/20 00:25 Urine Urobilinogen < 2.0 mg/dL (<2.0) 10/03/20 00:25 Ur Leukocyte Esterase Neg (Negative) 10/03/20 00:25 Urine WBC (Auto) < 1.0 /HPF (0.0-6.0) 10/03/20 00:25 Urine RBC (Auto) 2.0 /HPF (0.0-6.0) 10/03/20 00:25 Urine Mucus Few /HPF 10/03/20 00:25 Microbiology: Microbiology 10/02/20 22:45 Peripheral/Venous Blood Culture - Preliminary NO GROWTH AFTER 24 HOURS 10/02/20 22:45 Peripheral/Venous Blood Culture - Preliminary NO GROWTH AFTER 24 HOURS Hewitt/IV: Voiding Method Toilet IV Catheter Type [Right Hand] Peripheral IV IV Catheter Type [Left Peripheral IV Antecubital] Active Medications - Current Medications Current Medications: Generic Name Dose Route Start Last Admin Trade Name Freq PRN Reason Stop Dose Admin Acetaminophen 650 mg 10/03/20 00:35 Acetaminophen 325 Mg Tab PO Q4H PRN Pain MILD(1-3)/Fever >100.5/OLGUIN Heparin Sodium (Porcine) 5,000 unit 10/03/20 06:00 10/04/20 05:50 Heparin 5,000 Unit/1 Ml Vial SUB-Q 5,000 unit Q8HR RUDI Administration Hydromorphone HCl 1 mg 10/03/20 00:35 10/03/20 21:50 Hydromorphone 1 Mg/1 Ml Inj IV 1 mg Q3H PRN Administration Pain , Severe (7-10) Sodium Chloride 1,000 mls @ 125 mls/hr 10/03/20 00:45 10/04/20 02:07 Nacl 0.9% 1000 Ml IV 125 mls/hr DIRECT RUDI Administration Piperacillin Sod/Tazobactam Sod 4.5 gm in 100 mls @ 200 mls/hr 10/03/20 06:00 10/04/20 05:50 Zosyn/Ns 4.5gm/100ml IV 200 mls/hr Q8H RUDI Administration Protocol Magnesium Hydroxide 30 ml 10/03/20 00:35 Magnesium Hydroxide (Mom) Oral Liqd Udc PO Q4H PRN Constipation Nicotine 21 mg 10/03/20 14:00 10/03/20 13:48 Nicotine 21 Mg/24 Hr Patch TD 21 mg QDAY RUDI Administration Ondansetron HCl 4 mg 10/03/20 00:35 Ondansetron 4 Mg/2 Ml Inj IV Q8H PRN Nausea And Vomiting Pantoprazole Sodium 40 mg 10/03/20 10:00 10/03/20 21:26 Pantoprazole 40 Mg Tab PO 40 mg BID RUDI Administration Sodium Chloride 10 ml 10/03/20 10:00 10/03/20 21:27 Sodium Chloride 0.9% 10 Ml Flush Syringe IV 10 ml BID RUDI Administration Sodium Chloride 10 ml 10/03/20 00:35 10/03/20 06:53 Sodium Chloride 0.9% 10 Ml Flush Syringe IV 10 ml PRN PRN Administration LINE FLUSH Tramadol HCl 50 mg 10/03/20 13:30 Tramadol 50 Mg Tab PO Q6H PRN Pain, Moderate (4-6) Nutrition/Malnutrition Assess - Dietary Evaluation Nutrition/Malnutrition Findings: Nutrition Notes Start: 10/03/20 13:41 Freq: Status: Active Protocol: Document 10/03/20 13:41 CW (Rec: 10/03/20 13:45 CW [email or web address]) Co-Sign 10/03/20 13:41 Nutrition Notes 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 Per RN, pt does not have DM and does not need education. 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 Nutrition Intervention Follow-Up By: 10/07/20 Additional Comments FU for full assessment
[2020-10-04 11:42] VITALS: BP 127/84
--- NOTE | 2020-10-04 11:44 | Discharge Summary ---
Providers - Providers Date of Admission: 10/03/20 16:08 Date of discharge: 10/04/20 Attending physician: KVNG HOFFMAN 10/03/20 08:19 Consult to Physician [CONS] Routine Comment: Consulting Provider: LALA NICHOLS Physician Instructions: Reason For Exam: abd pain Consult to Physician [CONS] Routine Comment: Consulting Provider: JENSEN ANN Physician Instructions: Reason For Exam: abd p[ain Primary care physician: SO[employer] FERTILITY SPECIALIST Hospitalization Reason for admission: abd pain Condition: Critical Hospital course: 45 yo M with c/o abdominal pain, n/v/d for the last 2 days. Patient presented with pain in epigastrum and the lower abdomen. He also noted a left inguinal hernia which he first noticed in Oct 2019. The patient was admitted with diagnosis of abdominal pain, probable gastroenteritis and bilateral reducible inguinal hernias. Patient was seen by his general surgery in consultation who recommended bilateral inguinal hernia repair. The patient received IV antibiotics for the gastroenteritis with resolution of the leukocytosis from 17.1-9.2 at the time of discharge. GI also saw the patient in consultation but felt no need for endoscopy. Patient also had blood cultures that were negative and chest x-ray/urinalysis negative. Since the patient was stable from an infectious standpoint, the inguinal hernia repair surgery will be formed as an outpatient. Dedicated discharge time 35 minutes. Disposition: - TO HOME OR SELFCARE Time spent for discharge: 35 - Discharge Diagnoses (1) Gastroenteritis Status: Acute (2) Bilateral inguinal hernia Status: Acute (3) Elevated WBC count Status: Acute Qualifiers: Leukocytosis type: unspecified Qualified Code(s): D72.829 - Elevated white blood cell count, unspecified (4) LLQ abdominal pain Status: Acute (5) Nausea and vomiting Status: Acute (6) SIRS (systemic inflammatory response syndrome) Status: Acute Core Measure Documentation - Palliative Care Palliative Care/ Comfort Measures: Not Applicable - Core Measures Any of the following diagnoses?: none Exam - Constitutional Vitals: Temp Pulse Resp BP Pulse Ox 98.6 F 96 H 18 129/83 95 10/04/20 08:09 10/04/20 08:09 10/04/20 08:09 10/04/20 08:09 10/04/20 08:09 General appearance: Present: no acute distress, well-nourished - EENT Eyes: Present: PERRL ENT: hearing intact, clear oral mucosa - Neck Neck: Present: supple, normal ROM - Respiratory Respiratory effort: normal Respiratory: bilateral: CTA - Cardiovascular Heart Sounds: Present: S1 & S2. Absent: rub, click - Extremities Extremities: pulses symmetrical, No edema Peripheral Pulses: within normal limits - Abdominal General gastrointestinal: Present: soft, non-tender, non-distended, normal bowel sounds Male genitourinary: Present: normal - Integumentary Integumentary: Present: clear, warm, dry - Musculoskeletal Musculoskeletal: gait normal, strength equal bilaterally - Psychiatric Psychiatric: appropriate mood/affect, intact judgment & insight - Neurologic Neurologic: CNII-XII intact, moves all extremities Plan Follow up with: PRIMARY CARE, [Primary Care Provider] - 7 Days JENSEN ANN DO [Staff Physician] - 7 Days Prescriptions: metroNIDAZOLE [Flagyl] 500 mg PO Q8HR #21 tablet oxyCODONE /ACETAMINOPHEN [Percocet 5/325] 1 tab PO Q4HR #12 tab
--- NOTE | 2020-10-04 13:29 | Gastroenterology Progress Note ---
Assessment and Plan Abdominal pain - improved. tolerating po. ct without acute findings. noted surgery recommendations for outpatient inguinal hernia repair. given improved sx's, no further gi inpt recommendations at this time. will sign off, please call as needed. Subjective Date of service: 10/04/20 Principal diagnosis: abdominal pain Interval history: pt seen and examined abd pain improved tolerating po Objective - Constitutional Vitals: Temp Pulse Resp BP Pulse Ox 98.4 F 97 H 18 127/84 96 10/04/20 11:39 10/04/20 11:39 10/04/20 11:39 10/04/20 11:39 10/04/20 11:39 General appearance: no acute distress - Respiratory Respiratory effort: normal Respiratory: bilateral: CTA - Cardiovascular Rhythm: regular Heart Sounds: Present: S1 & S2 - Gastrointestinal General gastrointestinal: Present: soft, non-tender, non-distended - Labs CBC & Chem 7: 10/04/20 05:30 10/04/20 05:30 Labs: Laboratory Results - last 24 hr 10/04/20 10/04/20 10/04/20 05:30 05:30 05:30 WBC 9.2 RBC 4.92 Hgb 15.5 H Hct 44.8 D MCV 91 MCH 32 MCHC 35 H RDW 12.9 L Plt Count 219 Lymph % (Auto) 27.1 [place] % (Auto) 7.6 H Eos % (Auto) 2.8 Baso % (Auto) 0.2 Lymph # (Auto) 2.5 [place] # (Auto) 0.7 Eos # (Auto) 0.3 Baso # (Auto) 0.0 Seg Neutrophils % 62.3 Seg Neutrophils # 5.7 PT 13.3 INR 1.02 Sodium 137 Potassium 3.8 Chloride 108.4 H Carbon Dioxide 20 L Anion Gap 12 BUN 6 L Creatinine 0.7 L Estimated GFR > 60 BUN/Creatinine Ratio 9 Glucose 88 Calcium 7.5 L D
== END 2020-10-04 13:28 | disposition home or self-care (01) | DRG 392 ==
LOC: ED 19:16 → 4A 10-03 00:02 → OBSVTOIN 10-03 16:08
PROVIDERS: ADMIT Internal Medicine Geriatric Medicine; ATTEND Hospitalist
DX: K52.9 Noninfective gastroenteritis and colitis, unspecified (principal); R65.10 Systemic inflammatory response syndrome (SIRS) of non-infectious origin without acute organ dysfunction; K40.20 Bilateral inguinal hernia, without obstruction or gangrene, not specified as recurrent; F17.200 Nicotine dependence, unspecified, uncomplicated; Z79.899 Other long term (current) drug therapy
CPT/HCPCS: 36415; 71045; 74177; 80048; 80053; 81001; 82140; 83690; 85007; 85025; 85610; 87040; 87045; G0378; J1170; J1644; J2405; J2543; J7030; Q9967; U0003